=== PATIENT | male | born 1950 ===

== ENCOUNTER 2025-04-20 16:52 | Emergency (ER) | payer MEDICARE, SELFPAY ==
[2025-04-20 17:01] VITALS: BP 169/107; PULSE 81; RESP 20; TEMP 36.1; O2SAT 98; BMI 26.3
--- NOTE | 2025-04-20 17:03 | ED.GENADULT ---
HPI - General Adult General Chief complaint: Skin/Abscess/Foreign Body Stated complaint: infection, ? cyst in chest area Time Seen by Provider: 04/20/25 21:29 History of Present Illness ED Provider: Zaid Macias MD HPI narrative: 74-year-old healthy man with hyperlipidemia only presents with left chest erythema tenderness without drainage. No prior breast cancer trauma to the chest wall hidradenitis or other chronic skin conditions he denies systemic symptoms Related Data Previous Rx's ?Medication ?Instructions ?Recorded doxycycline hyclate 100 mg tablet 100 mg PO BID 7 days #14 tabs 04/20/25 Allergies Allergy/AdvReac Type Severity Reaction Status Date / Time No Known Allergies (No Known Allergy Verified 04/20/25 17:06 Allergies*) PMFSH Social History Social History Advance Directives: Yes Advance Directives Information Provided: No Advance Directives on File: No Do you have a plan to hurt others: No Plan Physical Exam ED Exam Exam: General: Awake alert oriented looks well comfortable Skin: Left chest with well demarcated indurated tender area erythematous looks like there is a obstructed follicle or pustule/furuncle just to the outer rim of the nipple about 07:00 see photo. Vital Signs: Vital Signs - 24 hr 04/20/25 17:01 Temperature 97.0 F Pulse Rate 81 Respiratory Rate 20 Blood Pressure 169/107 H Pulse Oximetry 98 Oxygen Delivery Method Room Air BMI result Body Mass Index 26.3 Course Course Course Narrative: Rapid medical examination performed in triage by Isaura Kunz PA-C: Patient is a 74 year old male presenting to the emergency department with a left sided chest abscess. Patient states that he has had a worsening left sided chest wall abscess over the last few days. Detailed physical exam and review of systems are deferred to the office clinician. Labs ordered. Patient placed back in the waiting room pending room availability and results. Procedures Procedure Narrative Procedure Narrative: EMERGENCY ULTRASOUND INTERPRETATION- Limited skin and soft tissue [This study was ordered, performed, and interpreted by myself. The study reveals: Impression: ?Cellulitis with no drainable collection [Indication: ?Redness and swelling Skin: Cellulitis with no drainable collection Performed by: ?Zaid Macias MD ?Images were stored ] Medical Decision Making Medical Decision Making MDM Narrative: 75-year-old healthy male with several days of worsening in duration and erythema. No drainable collection on ultrasound. Empiric antibiotics, close return. Follow up with PCP for a more comprehensive chest pectoral exam. There's no lymphadenopathy regionally, but I informed him that it is important that he get reevaluated for the possibility of underlying lesion, nodule, or breast cancer. Lab Data 04/20/25 17:21 04/20/25 17:21 Labs: Lab Results 04/20/25 Range/Units 17:21 WBC 11.3 H (4.8-10.8) X10*3/uL RBC 5.40 (4.60-5.80) X10*6/uL Hgb 16.2 (14.0-18.0) g/dl Hct 48.6 (42.0-52.0) % MCV 90.0 (80.0-98.0) fL MCH 30.0 (27.0-33.0) pg MCHC 33.3 (31.0-36.0) g/dl RDW 13.2 (11.0-16.0) % Plt Count 271 (160-400) X10*3/uL MPV 9.9 (9.4-12.4) fL Immature Gran % (Auto) 0.3 (0.0-0.4) % Neut % (Auto) 68.6 (45-73) % Lymph % (Auto) 18.1 L (20-40) % [place] % (Auto) 9.7 (2-11) % Eos % (Auto) 2.6 (0-4) % Baso % (Auto) 0.7 (0-2) % Lymph # (Auto) 2.0 (1.2-4.9) X10*3/uL [place] # (Auto) 1.1 (0.1-1.2) X10*3/uL Eos # (Auto) 0.3 (0.0-0.4) X10*3/uL Baso # (Auto) 0.1 (0.0-0.2) X10*3/uL Abs Immat Gran (auto) 0.03 (0.00-0.03) X10*3/uL Absolute Neuts (auto) 7.8 (2.0-8.3) x10*3/uL Absolute Nucleated RBC 0.000 (0.0-0.012) X10*3/uL Nucleated RBC % (auto) 0.0 (0.0-0.2) /100WBC ESR 16 (1-20) MM/HR Sodium 141 (135-145) mmol/L Potassium 4.4 (3.3-5.1) mmol/L Chloride 106 (96-108) mmol/L Carbon Dioxide 27 (22-29) mmol/L Anion Gap 12 (12-20) BUN 27 H (9-16) mg/dL Creatinine 1.33 (0.5-1.4) mg/dL Estim Creat Clear Calc 46.9 Estimated GFR 53 Random Glucose 117 H (60-115) mg/dL Calcium 10.0 (8.4-10.2) mg/dL Total Bilirubin 0.5 (0.0-1.0) mg/dL AST 24 (5-37) U/L ALT 33 (0-40) U/L Alkaline Phosphatase 72 (39-117) U/L C-Reactive Protein 3.75 H (< or = 0.50) mg/dL Total Protein 7.0 (6.5-8.0) g/dL Albumin 4.3 (3.5-5.0) g/dL Discharge Plan Discharge Clinical Impression: Cellulitis Patient Disposition: Home, Self-Care Instructions: Cellulitis (ED), Warm Compress or Soak (ED) Additional Instructions: Based on her examination and ultrasound there was no drainable collection we feel like you probably have a cellulitis from possibly an obstructed hair follicle on your chest wall. As we discussed if after 48 hours of antibiotics the redness is worsening or spreading outside of the demarcated line we agrelia return for evaluation. If you develop high fevers shaking chills worsening condition generally despite the antibiotics return back for evaluation. Take the antibiotics as prescribed. You can put a warm compress over the left chest to help it heal and drain. You can take ibuprofen or Tylenol for pain as well or apply an ice pack to the chest wall after complete infection resolution you should have your primary doctor evaluate your chest wall for nodularity masses or other concerning findings Prescriptions: New doxycycline hyclate 100 mg tablet 100 mg PO BID 7 Days Qty: 14 0RF Interventions: ED Discharge Assessment Last Done: 04/20/25 23:14 Discharge Date/Time: 04/20/25 23:15 Print Language: Guinean
[2025-04-20 17:30] LABS: MANUAL DIFF FLAG NO
--- OUTSIDE RECORDS SUMMARY | 2025-04-20 17:33 | XMS_ITS | Clinical Summary ---
Author Organization [address] [facility] Address [address] [place] [address] Phone Care Team Providers Care Lather Apprentice Name Role Phone Eldon Padron MD Primary Care Provider Allergies No known active allergies Medications aspirin 81 mg EC tablet Take 1 tablet (81 mg total) by mouth 1 (one) time each day. Active atorvastatin (LIPITOR) 20 mg tablet TAKE 1 TABLET BY MOUTH EVERY DAY AT SUPPER 5 Active betamethasone dipropionate 0.05 % lotion APPLY TO ITCH ON SCALP TWICE A DAY UNTIL IMPROVED. MAY RE-TREAT NEEDED. 4 Active fluticasone propionate (FLONASE) 50 mcg/actuation nasal spray Administer 1 spray into affected nostril(s). Active fluticasone furoate-vilantero L (BREO ELLIPTA) 100-25 mcg/dose inhaler INHALE 1 PUFF INTO THE LUNGS DAILY FOR 30 DAYS. 3 Active albuterol HFA (PROAIR HFA ; PROVENTIL HFA ; VENTOLIN HFA) 90 mcg/actuation inhalerIndication s:Mild persistent asthma, uncomplicated Inhale 2 puffs by mouth every 4 (four) hours if needed for wheezing. 6.7 g 3 5 01/17/20 26 Active fluticasone furoate-vilantero L (Breo Ellipta) 100-25 mcg/dose inhalerIndication s:Mild persistent asthma, uncomplicated Inhale 1 puff by mouth 1 (one) time each day. 60 each 11 5 01/17/20 26 Active Surgical History Surgery Date Site/Laterality Comments HERNIA REPAIR PROCEDURE: HISTORICAL HERNIA REPAIR/ING Medical History Medical History Date Comments Hyperlipidemia 11/28/2017 DX:Hyperlipidemi a Asthma 01/26/2017 DX:Asthma Family History Medical History Relation Name Comments Coronary artery disease Father Relation Name Status Comments Father Mother Social History Tobacco Use Types Packs/Day Years Used Date Smoking Tobacco: Never Smokeless Tobacco: Never Alcohol Use Standard Drinks/Week Comments Yes 3 (1 standard drink = 0.6 oz pur e alcohol) Sex and Gender Information Value Date Recorded Sex Assigned at Not on file Legal Sex Male 5:15 AM EST Gender Identity Not on file Sexual Orientation Not on file Last Filed Vital Signs Vital Sign Reading Time Taken Comments Blood Pressure 126/78 01/01/2025 8:24 AM EDT Pulse 63 01/01/2025 8:24 AM EDT Temperature 36.1 C (97 F) 01/01/2025 8:24 AM EDT Respiratory Rate 20 01/01/2025 8:24 AM EDT Oxygen Saturation 97% 01/01/2025 8:24 AM EDT Inhaled Oxygen Concentration - - Weight 77.5 kg (170 lb 12.8 oz) 01/01/2025 8:24 AM EDT Height 172.7 cm (5' 8 ) 01/01/2025 8:24 AM EDT Body Mass Index 25.97 01/01/2025 8:24 AM EDT Plan of Treatment Upcoming Encounters Date Type Department Care Team (Late st Contact Info) Description 01/01/2026 8:15 AM EDT Office Visit Pulmonology - [address] [place] [address] Codi Escoto MD [address] [place] [phone] Health Maintenance Due Date Last Done Comments Colorectal Cancer Screening: Colonoscopy 1950 RSV Immunization Adult Patients (1 - Risk 50-74 years 1-dose series) 2002 Zoster Vaccines (1 of 2) 2002 Cholesterol Screening (Lipid Panel) 04/02/2022 Falls Risk Assessment 04/02/2022 Hepatitis C Screening 04/02/2022 Medicare Annual Wellness Visit 04/02/2022 Social Influencers of Health Screening 04/02/2022 Depression Screening 2024 COVID-19 Vaccine ( season) 2024 02/16/2024, 02/27/2023, 02/07/2022, Additional history exists Influenza Vaccine (#1) 2024 , 02/27/2023, 02/07/2022, Additional history exists DTaP,Tdap,and Td Vaccines (3 - Td or Tdap) 05/23/2032 05/23/2022, 12/25/2017 Pneumococcal Vaccine: 50+ Years Completed 05/23/2022 HIB Vaccines Aged Out No longer eligi ble based on patient's age to complete this topic HPV Vaccines Aged Out No longer eligi ble based on patient's age to complete this topic Hepatitis A Vaccines Aged Out No long er eligible based on patient's age to complete this topic Hepatitis B Vaccines Aged Out No long er eligible based on patient's age to complete this topic IPV Vaccines Aged Out No longer eligi ble based on patient's age to complete this topic MMR Vaccines Aged Out No longer eligi ble based on patient's age to complete this topic Meningococcal ACWY Vaccine Aged Out N o longer eligible based on patient's age to complete this topic Meningococcal B Vaccine Aged Out No l onger eligible based on patient's age to complete this topic RSV Immunization Patients Under 20 months Aged Out No longer eligible based on patient's age to complete this topic Varicella Vaccines Aged Out No longer eligible based on patient's age to complete this topic Insurance MEDICARE [facility] Care Teams Lather Apprentice Relationship Specialty Start Date End Date Eldon Padron MD [address] [place] [address] [address] [place] [address] PCP - General Endocrinology 12/28/17
[2025-04-20 17:46] LABS: Albumin Level 4.3 g/dL (3.5-5.0); Alkaline Phosphatase 72 U/L (39-117); Anion Gap 12 (12-20); Aspartate Amino Transferase 24 U/L (5-37); Blood Urea Nitrogen 27 mg/dL (9-16); Calcium 10.0 mg/dL (8.4-10.2); Carbon Dioxide 27 mmol/L (22-29); Chloride 106 mmol/L (96-108); Creatinine Clr Calc Pharmacy 46.9; Estimated Glomerular Filt Rate 53; Potassium 4.4 mmol/L (3.3-5.1); Sodium 141 mmol/L (135-145); Total Protein 7.0 g/dL (6.5-8.0)
[2025-04-20 17:57] LABS: Alanine Aminotransferase 33 U/L (0-40)
[2025-04-20 18:03] LABS: Hematocrit 48.6 % (42.0-52.0); Hemoglobin 16.2 g/dl (14.0-18.0); Imm Gran Abs Auto 0.03 X10*3/uL (0.00-0.03); Imm Gran Pct Auto 0.3 % (0.0-0.4); Lymphocytes Absolute Auto 2.0 X10*3/uL (1.2-4.9); Mean Corpuscular HGB Conc 33.3 g/dl (31.0-36.0); Mean Corpuscular Hemoglobin 30.0 pg (27.0-33.0); Mean Corpuscular Volume 90.0 fL (80.0-98.0); NRBC Abs Auto 0.000 X10*3/uL (0.0-0.012); NRBC Pct Auto 0.0 /100WBC (0.0-0.2); Platelet Count 271 X10*3/uL (160-400); Red Blood Count 5.40 X10*6/uL (4.60-5.80); White Blood Count 11.3 X10*3/uL (4.8-10.8)
[2025-04-20 22:55] VITALS: BP 146/98; PULSE 71; RESP 20; TEMP 36.4; O2SAT 96
[2025-04-20 23:14] VITALS: BP 146/98; PULSE 71; RESP 20; TEMP 36.4; O2SAT 96
== END 2025-04-20 23:15 | disposition home or self-care (01) ==
PROVIDERS: Physician Assistant Medical; Emergency Provider Emergency Medicine; PCP Internal Medicine Endocrinology, Diabetes & Metabolism
DX: L03.313 Cellulitis of chest wall (principal)
CPT/HCPCS: 36415; 76604; 80053; 85025; 85652; 86140; 99283; 99284